=== PATIENT | female | born 1990 | race Two or more races ===

== ENCOUNTER → 2024-08-31 | Outpatient (CLI) | payer MEDICAID, SELFPAY ==
--- NOTE | 2024-08-31 15:45 | XR_ITS ---
Examination: Diagnostic digital mammography, bilateral Computer aided detection 3-D breast Tomosynthesis, bilateral Date and time of exam: August 31, 2024 1550 hours INDICATIONS: Right breast pain beginning 2 months ago Technique: Nonmagnified MLO, CC views of the breasts to been obtained, reconstructed from 3-D Tomosynthesis images. R2 computer aided detection program utilized for evaluation of suspicious masses and/or abnormal calcifications. 3-D Tomosynthesis images obtained. Findings: The breasts are heterogeneously dense, which may obscure small masses Suspicious for 8 mm atypical lymph node in the right axilla Benign calcifications Impression: BI-RADS Category 0: Incomplete: Need additional imaging evaluation Recommend follow-up spot tomographic views right axilla as well as right breast sonography to complete the workup.
== END | disposition home or self-care (01) ==
PROVIDERS: PCP Nurse Practitioner Family; Referring Provider Physician Assistant; Visit Provider Physician Assistant
DX: R92.8 Other abnormal and inconclusive findings on diagnostic imaging of breast (principal)
CPT/HCPCS: 77062; 77066; G0279

== ENCOUNTER → 2024-10-21 | Outpatient (CLI) | payer MEDICAID, SELFPAY ==
--- NOTE | 2024-10-21 15:15 | XR_ITS ---
Examination: Breast ultrasound, unilateral, right complete Date and time of exam: October 13, 2024 1506 hrs. Indications: Mammogram August 31, 2024 8mm nodule right axilla Technique: Real-time fischer scale ultrasonographic imaging performed right breast including all 4 quadrants as well as nipple retroareolar and axillary region. Findings: Right axillary lymph node 11 x 7 x 10 mm Impression: BI-RADS Category 2: Benign findings
--- NOTE | 2024-10-21 15:45 | XR_ITS ---
Examination: Diagnostic digital mammography, unilateral, right Computer aided detection 3-D breast Tomosynthesis, unilateral Date and time of exam: 10/21/2024, 3:15 PM Comparisons: 08/31/2024. Correlation with same-day ultrasound Indications: Further evaluation of axillary lymph nodes. Technique: Nonmagnified MLO, CC views of the right breast and axilla have been obtained, reconstructed from 3-D Tomosynthesis images. R2 computer aided detection program utilized for evaluation of suspicious masses and/or abnormal calcifications. 3-D Tomosynthesis images obtained. Technologist: Findings: There are scattered areas of fibroglandular density. No evidence of abnormal masses or suspicious calcifications. Morphologically normal axillary lymph nodes. Impression: BI-RADS category 2: Benign findings Recommend clinical follow-up as needed and beginning yearly screening mammography beginning at age 40.
== END | disposition home or self-care (01) ==
PROVIDERS: PCP Nurse Practitioner Family; Referring Provider Physician Assistant; Visit Provider Physician Assistant
DX: R92.321 Mammographic fibroglandular density, right breast (principal)
CPT/HCPCS: 76641; 77061; 77065; G0279